=== PATIENT | male | born 1985 | race American Indian/Alaskan Native ===

== ENCOUNTER 2018-11-10 18:21 | Emergency (ER) | payer SELFPAY ==
--- NOTE | 2018-11-10 19:47 | RAD REPORT ---
EXAM DESCRIPTION: RAD - Foot Left 3 View - 11/10/2018 7:33 pm CLINICAL HISTORY: Left Foot pain FINDINGS: No fracture or dislocation is seen.
--- NOTE | 2018-11-10 19:52 | ER ---
Nurse's Notes [facility] Name: Scot Schmitt Age: 33 yrs Sex: Male : 1985 Arrival Date: 11/10/2018 Time: 18:25 Bed 12 Private MD: Out, [facility] Diagnosis: Pain in left foot Presentation: 11/10 18:40 Presenting complaint: Patient states: Left heel pain for about 2-3 days now, had this sg pain back in July and it was a bruise caused by stepping on a stone, reports no injury or puncture to foot to his knowledge. Transition of care: patient was not received from another setting of care. Onset of symptoms was November 10, 2018. Risk Assessment: Do you want to hurt yourself or someone else? Patient reports no desire to harm self or others. Initial Sepsis Screen: Does the patient meet any 2 criteria? No. Patient's initial sepsis screen is negative. Does the patient have a suspected source of infection? No. Patient's initial sepsis screen is negative. Care prior to arrival: None. 18:40 Method Of Arrival: Ambulatory sg 18:40 Acuity: ALEENA 4 sg Historical: - Allergies: 18:42 No Known Allergies; sg - Home Meds: 18:42 None [Active]; sg - PMHx: 18:42 None; sg - PSHx: 18:42 None; sg - Immunization history:: Adult Immunizations up to date. - Social history:: Smoking status: Patient/guardian denies using tobacco. - Ebola Screening: : Patient negative for fever greater than or equal to 101.5 degrees Fahrenheit, and additional compatible Ebola Virus Disease symptoms Patient denies exposure to infectious person Patient denies travel to an Ebola-affected area in the 21 days before illness onset No symptoms or risks identified at this time. Screenin:00 Abuse screen: Denies threats or abuse. Denies injuries from another. Nutritional rv screening: No deficits noted. Tuberculosis screening: No symptoms or risk factors identified. Fall Risk None identified. Assessment: 18:59 General: Appears in no apparent distress. comfortable, Behavior is calm, cooperative. rv Pain: Complains of pain in left heel. Neuro: Level of Consciousness is awake, alert, obeys commands, Oriented to person, place, time, situation. Cardiovascular: Capillary refill < 3 seconds. Respiratory: Airway is patent. GI: No signs and/or symptoms were reported involving the gastrointestinal system. : No signs and/or symptoms were reported regarding the genitourinary system. EENT: No signs and/or symptoms were reported regarding the EENT system. Derm: Wound noted left foot. Musculoskeletal: No signs and/or symptoms reported regarding the musculoskeletal system. Vital Signs: 18:41 BP 154 / 97; Pulse 96; Resp 18; Temp 98.1; Pulse Ox 98% on R/A; Pain 3/10; sg ED Course: 18:25 Patient arrived in ED. tw3 18:25 Out, of Town is Private Physician. tw3 18:40 Arm band placed on. sg 18:41 Triage completed. sg 18:53 [facility] kb 18:53 Jean Paul Daley MD is Attending Physician. kb 19:01 Patient has correct armband on for positive identification. Call light in reach. Pulse rv ox on. NIBP on. 19:34 Foot Left 3 View XRAY In Process Unspecified. EDMS 20:12 No provider procedures requiring assistance completed. Patient did not have IV access rv during this emergency room visit. Administered Medications: No medications were administered Outcome: 19:51 Discharge ordered by . kb 20:12 Discharged to home ambulatory. rv 20:12 Condition: good 20:12 Discharge instructions given to patient, Instructed on discharge instructions, follow up and referral plans. Demonstrated understanding of instructions, follow-up care. 20:12 Patient left the ED. rv Signatures: Dispatcher [employer] EDMS Mary Anne Puga FNP-C FNP-Ckb Gay, Steven, RN RN Jason, [facility] Mainor Granado RN RN rv
--- NOTE | 2018-11-10 19:52 | EDPHYS ---
Physician Documentation [facility] Name: Scot Schmitt Age: 33 yrs Sex: Male : 1985 Arrival Date: 11/10/2018 Time: 18:25 Bed 12 Private MD: Out, [facility] ED Physician Jean Paul Daley HPI: 11/10 19:55 This 33 yrs old Other Male presents to ER via Ambulatory with complaints of Foot Pain. kb 19:57 The patient presents with pain, that is chronic. The complaints affect the left foot. kb Context: The problem was sustained at an unknown location, resulted from an unknown cause, the patient can fully bear weight, the patient is able to ambulate. Onset: The symptoms/episode began/occurred 4 month(s) ago. Modifying factors: The symptoms are alleviated by nothing, the symptoms are aggravated by weight bearing, movement. Associated signs and symptoms: The patient has no apparent associated signs or symptoms. Severity of symptoms: At their worst the symptoms were moderate, in the emergency department the symptoms are unchanged. The patient has experienced a previous episode. The patient has not recently seen a physician. Historical: - Allergies: 18:42 No Known Allergies; sg - Home Meds: 18:42 None [Active]; sg - PMHx: 18:42 None; sg - PSHx: 18:42 None; sg - Immunization history:: Adult Immunizations up to date. - Social history:: Smoking status: Patient/guardian denies using tobacco. - Ebola Screening: : Patient negative for fever greater than or equal to 101.5 degrees Fahrenheit, and additional compatible Ebola Virus Disease symptoms Patient denies exposure to infectious person Patient denies travel to an Ebola-affected area in the 21 days before illness onset No symptoms or risks identified at this time. ROS: 19:56 MS/extremity: Positive for pain, of the heel of left foot. kb 19:56 Constitutional: Negative for fever, chills, and weight loss, ENT: Negative for injury, pain, and discharge, Neck: Negative for injury, pain, and swelling, Cardiovascular: Negative for chest pain, palpitations, and edema, Respiratory: Negative for shortness of breath, cough, wheezing, and pleuritic chest pain, Abdomen/GI: Negative for abdominal pain, nausea, vomiting, diarrhea, and constipation, Back: Negative for injury and pain, Skin: Negative for injury, rash, and discoloration, Neuro: Negative for headache, weakness, numbness, tingling, and seizure. Exam: 19:57 Constitutional: This is a well developed, well nourished patient who is awake, alert, kb and in no acute distress. Head/Face: Normocephalic, atraumatic. Chest/axilla: Normal chest wall appearance and motion. Nontender with no deformity. No lesions are appreciated. Cardiovascular: Regular rate and rhythm with a normal S1 and S2. No gallops, murmurs, or rubs. Normal PMI, no JVD. No pulse deficits. Respiratory: Lungs have equal breath sounds bilaterally, clear to auscultation and percussion. No rales, rhonchi or wheezes noted. No increased work of breathing, no retractions or nasal flaring. Abdomen/GI: Soft, non-tender, with normal bowel sounds. No distension or tympany. No guarding or rebound. No evidence of tenderness throughout. Skin: Warm, dry with normal turgor. Normal color with no rashes, no lesions, and no evidence of cellulitis. MS/ Extremity: Pulses equal, no cyanosis. Neurovascular intact. Full, normal range of motion. Neuro: Awake and alert, GCS 15, oriented to person, place, time, and situation. Cranial nerves II-XII grossly intact. Motor strength 5/5 in all extremities. Sensory grossly intact. Cerebellar exam normal. Normal gait. Vital Signs: 18:41 BP 154 / 97; Pulse 96; Resp 18; Temp 98.1; Pulse Ox 98% on R/A; Pain 3/10; sg MDM: 18:53 Patient medically screened. kb 19:56 Data reviewed: vital signs, nurses notes. Data interpreted: Pulse oximetry: on room air kb is 98 %. Interpretation: normal. Counseling: I had a detailed discussion with the patient and/or guardian regarding: the historical points, exam findings, and any diagnostic results supporting the discharge/admit diagnosis, radiology results, the need for outpatient follow up, a medical office scheduler, to return to the emergency department if symptoms worsen or persist or if there are any questions or concerns that arise at home. 11/10 19:02 Order name: Foot Left 3 View XRAY; Complete Time: 19:51 kb Administered Medications: No medications were administered Disposition: 11/11 12:38 Co-signature as Attending Physician, Jean Paul Daley MD. rn Disposition: 11/10/18 19:51 Discharged to Home. Impression: Pain in left foot. - Condition is Stable. - Discharge Instructions: Musculoskeletal Pain. - Medication Reconciliation Form, Thank You Letter, Antibiotic Education, Prescription Opioid Use form. - Follow up: Emergency Department; When: As needed; Reason: Worsening of condition. Follow up: Private Physician; When: 2 - 3 days; Reason: Recheck today's complaints, Continuance of care, Re-evaluation by your physician. Signatures: Dispatcher [employer] EDMS Mary Anne Puga, SAFETY EQUIPMENT TESTER-C SAFETY EQUIPMENT TESTER-Ckb Darrian Pak, RN RN Jean Paul Finch MD MD rn Vicente, Ronaldo, RN RN rv Corrections: (The following items were deleted from the chart) 11/10 19:57 19:51 11/10/2018 19:51 Discharged to Home. Impression: Pain in right foot. Condition is kb Stable. Forms are Medication Reconciliation Form, Thank You Letter, Antibiotic Education, Prescription Opioid Use. Follow up: Emergency Department; When: As needed; Reason: Worsening of condition. Follow up: Private Physician; When: 2 - 3 days; Reason: Recheck today's complaints, Continuance of care, Re-evaluation by your physician. kb 20:12 19:57 11/10/2018 19:51 Discharged to Home. Impression: Pain in left foot. Condition is rv Stable. Discharge Instructions: Musculoskeletal Pain. Forms are Medication Reconciliation Form, Thank You Letter, Antibiotic Education, Prescription Opioid Use. Follow up: Emergency Department; When: As needed; Reason: Worsening of condition. Follow up: Private Physician; When: 2 - 3 days; Reason: Recheck today's complaints, Continuance of care, Re-evaluation by your physician. kb
== END 2018-11-10 20:12 | disposition home or self-care (01) ==
LOC: ER 18:21
DX: M79.672 Pain in left foot (principal)
CPT/HCPCS: 99283